=== PATIENT | female | born 1960 | race Caucasian/White ===

== ENCOUNTER 2024-10-31 08:00 | Outpatient (RCR) | payer BC, SELFPAY | END 2024-12-06 14:29 | disposition home or self-care (01) | LOC: HO.PT 08:00 | PROVIDERS: PCP Internal Medicine | DX: N39.9 Disorder of urinary system, unspecified (principal); N39.3 Stress incontinence (female) (male) | CPT/HCPCS: 97112; 97140; 97161 ==